=== PATIENT | female | born 1950 | race Hispanic/Latino ===

== ENCOUNTER → 2017-08-30 | Outpatient (CLI) | payer MEDICARE ==
[~2017-08-30] MED LIST: LISINOPRIL10 MG PO; METFORMIN HCL500 MG PO; PRAVASTATIN SOD40 MG PO
--- NOTE | 2017-08-30 14:22 | Diagnostic Imaging Report ---
PROCEDURE:BONE DXA DUAL ENERGY INDICATION: Menopausal The patient history questionnaire was completed and is available on PACS. COMPARISON:04/24/13 FINDINGS: Evaluation of the left hip and lumbar spine was performed utilizing DEXA Hologic bone densitometer. The study is technically adequate. The patient's fracture risk is compared to an age-matched control. Left femoral neck bone mineral density: 0.827 g/cm2, T-score is -0.4, Z-score is 1.3. Total left hip bone mineral density: 0.882 g/cm2, T-score is -0.6, Z-score is 0.8. Left hip BMD changes versus baseline: 1.4%. Lumbar spine total bone mineral density: 1.005 g/cm2, T-score is -0.4, Z-score is 1.7. Lumbar spine BMD changes versus baseline: 5%. IMPRESSION: Bone mineralization by WHO Classification is normal,the fracture risk is not increased. Dictated by: Nicholas Castaneda M.D. on 08/30/2017 at 14:27 Electronically approved by: Nicholas Castaneda M.D. on 08/30/2017 at 14:27
== END ==
LOC: DX 13:35
PROVIDERS: ATTEND Specialist
DX: Z13.820 Encounter for screening for osteoporosis (principal); Z78.0 Asymptomatic menopausal state
CPT/HCPCS: 77080